=== PATIENT | female | born 1955 | race Caucasian/White ===

== ENCOUNTER 2016-07-03 12:54 | Observation (INO) | payer OTHER ==
[~2016-07-03] VITALS: Ht 162.6 cm; Wt 86.3 kg
[~2016-07-03 12:54] MED LIST: ALEVE220 M2 PO; ALLEGRA30 MG PO; HYDROCHLOROTHIA25 MG PO; NAPROSYN500 MG PO; NEXIUM20 MG PO; PERCOCET 5/31 TABLET PO; PROBIOTIC1 EAC1 PO; ZOFRAN ODT4 MG PO
[2016-07-03 13:32] LABS: HEMATOCRIT 40.1 % (36.0-46.0); MCH 27.7 PG (29.0-34.0); MCHC 32.2 G/DL (30.0-36.0); MCV 86.1 FL (83-99); MEAN PLAT.VOLUME 9.5 uM^3 (9.5-12.4); PLATELET COUNT 267 K/uL (156-360); RBC DIS.WIDTH-CV 13.2 % (11.8-14.6); RBC DIS.WIDTH-SD 40.8 % (39-53); RED BLOOD COUNT 4.66 M/uL (3.80-5.20); WHITE BLOOD COUNT 9.9 K/uL (4.1-10.2)
[2016-07-03 13:45] LABS: CHLORIDE 101 mEq/L (99-109); SODIUM 140 mEq/L (136-147)
[2016-07-03 13:46] LABS: GLUCOSE 107 mg/dL (70-99)
[2016-07-03 13:48] LABS: ANION GAP 10 MEQ/L (2-14)
[2016-07-03 13:50] LABS: GFR ESTIMATE (CALCULATED) > 59 mL/min/
[2016-07-03 13:51] LABS: UREA NITROGEN (BUN) 15 mg/dL (9-23)
[2016-07-03] MEDS ORDERED: PROAIR HFA8.5 GM IH (15:10)
[2016-07-03] MEDS ORDERED: CALTRATE GUMMY1 EACH PO (15:11)
[2016-07-03] MEDS ORDERED: LOSARTAN-HCTZ1 EAC1 PO (15:11)
[2016-07-03 15:13] LABS: TROP-I INTERPRETATION NEGATIVE; TROPONIN-I < 0.01 ng/mL (0.0-0.30)
[2016-07-03] MEDS ORDERED: NEXIUM40 MG PO (20:07)
[2016-07-03] MEDS ORDERED: ALLEGRA60 MG PO (20:08)
[2016-07-03] MEDS ORDERED: FLONASE16 G1 BOTH NARES (20:09)
[2016-07-03] MEDS ORDERED: CENTRUM SILVER1 EAC4 PO (20:10)
[2016-07-03] MEDS ORDERED: CITRACAL SOFT1 EACH PO (20:11)
[2016-07-03 22:00] LABS: BASE EXCESS 7.2 mEq/L (-3 to +3); BICARBONATE 32.6 mEq/L (22-26); METHEMOGLOBIN 0.9 % (0-1.5); PCO2 48 mm Hg (35-45); PO2 60 mm Hg (80-100); pH 7.44 (7.35-7.45)
[2016-07-03 22:01] LABS: COMMENTS - BLOOD GASES C+; DEVICE NC; O2 FLOW 3 L/MIN; SITE LB; TOTAL RESP RATE 20 resp/min
[2016-07-03 22:56] LABS: INFLUENZA A VIRAL ANTIGEN NEGATIVE; INFLUENZA B VIRAL ANTIGEN NEGATIVE
[2016-07-03 23:21] VITALS: BP 131/82
[2016-07-04 04:50] VITALS: BP 132/70
[2016-07-04 06:06] LABS: HEMATOCRIT 39.6 % (36.0-46.0); MCH 28.3 PG (29.0-34.0); MCHC 32.3 G/DL (30.0-36.0); MCV 87.4 FL (83-99); MEAN PLAT.VOLUME 10.1 uM^3 (9.5-12.4); PLATELET COUNT 263 K/uL (156-360); RBC DIS.WIDTH-CV 13.6 % (11.8-14.6); RED BLOOD COUNT 4.53 M/uL (3.80-5.20); WHITE BLOOD COUNT 9.3 K/uL (4.1-10.2)
[2016-07-04 06:30] LABS: ANION GAP 10 MEQ/L (2-14); CHLORIDE 98 MEQ/L (99-109); GFR ESTIMATE (CALCULATED) > 59 mL/min/; SAMPLE HEMOLYSIS CHECK 0; SAMPLE ICTERIC CHECK 0; SAMPLE LIPEMIA CHECK 0; SODIUM 140 MEQ/L (136-147); UREA NITROGEN (BUN) 10 mg/dL (9-23)
[2016-07-04 06:31] LABS: GLUCOSE 210 mg/dL (70-99); POTASSIUM 3.7 MEQ/L (3.7-5.4)
[2016-07-04 08:13] VITALS: BP 139/82
[2016-07-04] MEDS ORDERED: LEVAQUIN750 MG PO (11:26)
[2016-07-04 12:13] VITALS: BP 124/75
== END 2016-07-04 12:16 | disposition home or self-care (01) ==
LOC: EME 12:54 → EDOF 21:08 → 5WEST 21:08
PROVIDERS: Hospitalist; Physician Assistant
DX: J96.01 Acute respiratory failure with hypoxia (principal); I10 Essential (primary) hypertension; K21.9 Gastro-esophageal reflux disease without esophagitis; J30.9 Allergic rhinitis, unspecified; Z88.0 Allergy status to penicillin; Z88.8 Allergy status to other drugs, medicaments and biological substances
CPT/HCPCS: 36600; 71020; 71275; 80048; 82803; 84484; 85027; 87502; 93005; 94640; 94644; 94799; 99202; 99281; 99285; G0378; J1956; J2930; J3475; J7030